=== PATIENT | female | born 2000 | race Two or more races ===

== ENCOUNTER 2025-02-17 11:36 | Emergency (ER) | payer OTHER ==
[~2025-02-17] VITALS: Ht 160 cm; Wt 77.6 kg
[2025-02-17] MEDS ORDERED: NEOMYCIN/POLYMYXIN B/HYDROCORT 20 DR/ML BOTTLE OT ONE (12:59)
[2025-02-17] MEDS ORDERED: NEOMYCIN SULFATE/DEX NA PH OPHT DROPS OP ONE (13:00)
[2025-02-17] MEDS ORDERED: GENTAMICIN SULFATE 0.15 MG/DR DROPS 5ML OP ONE ×2 (13:11→13:30)
== END 2025-02-17 13:38 | disposition home or self-care (01) ==
LOC: ER 11:37
DX: H10.31 Unspecified acute conjunctivitis, right eye (principal)